=== PATIENT | male | born 1990 | race Asian ===

== ENCOUNTER 2021-05-23 17:36 | Emergency (ER) | payer MEDICAID ==
[~2021-05-23] VITALS: Ht 182.9 cm; Wt 82.0 kg
[2021-05-23 17:58] VITALS: BP 133/94
[2021-05-23] MEDS ORDERED: TETANUS, DIPHTHERIA, PERTUSSIS VAC/PF 0.5ML (>10YR OLD) IM ONE (19:15)
[2021-05-23] MEDS ORDERED: BACI28.32 TP (19:16)
[2021-05-23] MEDS ORDERED: AMOX-424 MT (19:16)
== END 2021-05-23 20:17 | disposition home or self-care (01) ==
LOC: ER 17:36
DX: T14.8XXA Other injury of unspecified body region, initial encounter (principal); W54.0XXA Bitten by dog, initial encounter; Y93.89 Activity, other specified; Y92.89 Other specified places as the place of occurrence of the external cause; Y99.8 Other external cause status
CPT/HCPCS: 90471; 90715; 99283